=== PATIENT | female | born 1995 | race Caucasian/White ===

== ENCOUNTER 2019-04-12 13:58 | Emergency (ER) | payer OTHER ==
[~2019-04-12] VITALS: Ht 167.6 cm; Wt 72.0 kg
[2019-04-12 14:00] VITALS: BP 135/90; PULSE 76; RESP 16; Ht 167.6 cm; Wt 72.0 kg
[2019-04-12] MEDS ORDERED: KETOROLAC 60 MG INJ IM STA (14:58)
[2019-04-12] MEDS ORDERED: DIPHTH/TET/ACEL PERTUSS (ADULT) 0.5 ML VIAL IM* ONE (15:00)
[2019-04-12] MEDS ORDERED: LIDOCAINE 2%/EPI MPF (SDV) 20 ML VIAL INJ STA (16:08)
[2019-04-12] MEDS ORDERED: IBUP-1542 PO (16:46)
--- NOTE | 2019-04-12 19:13 | ERD ---
ER Documentation Chief Complaint Chief Complaint pt is bib friend with dog bite to lip area HPI Patient is a 23-year-old female with no medical problems who presents with a dog bite. At 2 PM the patient was bit by a friend's dog in the face. The patient is a laceration of the right lip. The patient has pain. She was given tetanus in the ER and Toradol. She does have a primary doctor. ROS All systems reviewed and are negative except as per history of present illness. Medications Home Meds Active Scripts Ibuprofen* (Motrin*) 600 Mg Tab, 600 MG PO Q6H PRN for PAIN AND OR ELEVATED TEMP, #30 TAB Prov:KASHMIR SAENZ MD 04/12/19 Allergies Allergies: Coded Allergies: No Known Allergy (Unverified , 04/12/19) PMhx/Soc Medical and Surgical Hx: pt denies Medical Hx, pt denies Surgical Hx Hx Alcohol Use: No Hx Substance Use: No Hx Tobacco Use: No Smoking Status: Never smoker FmHx Family History: No diabetes Physical Exam Vitals Vital Signs Date Temp Pulse Resp B/P (MAP) Pulse Ox O2 O2 Flow FiO2 Time Delivery Rate 04/12/19 99.0 76 16 135/90 100 14:00 (105) Physical Exam Const: No acute distress Head: Atraumatic Eyes: Normal Conjunctiva ENT: Normal External Ears, Nose and Mouth. Neck: Full range of motion. No meningismus. Resp: Clear to auscultation bilaterally Cardio: Regular rate and rhythm, no murmurs Abd: Soft, non tender, non distended. Normal bowel sounds Skin: Laceration deepened through the vermilion border to the right upper lip, small puncture laceration to the just below the lower lip in the midline Back: No midline or flank tenderness Ext: No cyanosis, or edema Neur: Awake and alert Psych: Normal Mood and Affect Results 24 hrs Laboratory Tests Test 04/12/19 15:14 POC Beta HCG, Qualitative NEGATIVE Current Medications Medications Dose Sig/Marcial Start Time Status Last (Trade) Ordered Route PRN Stop Time Admin Dose Reason Admin Ketorolac 60 mg ONCE STAT 04/12/19 DC 04/12/19 Tromethamine IM 14:58 15:30 (Toradol) 04/12/19 14:59 Diphtheria/ 0.5 ml ONCE ONCE 04/12/19 DC 7/12/19 Tetanus/Acell IM* 15:00 15:30 Pertussis 04/12/19 15:01 (Adacel) Lidocaine/ 20 ml ONCE STAT 04/12/19 DC Epinephrine INJ 16:08 (Xylocaine 04/12/19 16:09 2%/ Epi Mpf(Sdv)) Procedures/MDM Laceration Repair #1 by me: Anesthesia: 1% lidocaine with epinephrine locally Location: Right lip Tendon/Joint/Nerves: No injury Foreign body: None detected after copious irrigation and exploration Technique: Simple Interrupted Sutures Complexity: Deep laceration which crosses the vermilion border Post Closure Length: 3 cm Laceration Repair #2 by me: Anesthesia: 1% lidocaine [with] epinephrine locally Location: Inferior to the lower lip Tendon/Joint/Nerves: No injury Foreign body: None detected after copious irrigation and exploration Technique: Simple Interrupted Sutures Complexity: No subcutaneous sutures/mucosal repair/edge excision Post Closure Length: 0.1 cm Patient's bleeding was easily controlled in the department and there is no indication of anemia. No evidence of compartment syndrome, neurologic injury, vascular injury, open joint, tendon laceration, or foreign body. Patient is appropriate for outpatient follow up. 48 hour wound check. Scar minimization instructions given. Departure Diagnosis: Primary Impression: Dog bite Encounter type: initial encounter Qualified Codes: W54.0XXA - Bitten by dog, initial encounter Condition: Fair Patient Instructions: Dog Bite Referrals: Your doctor Additional Instructions: Wound check 2 days. Suture removal 7-10 days. KASHMIR SAENZ MD Apr 12, 2019 19:13
== END 2019-04-12 17:55 | disposition home or self-care (01) ==
LOC: FTE 13:58
DX: S01.511A Laceration without foreign body of lip, initial encounter (principal); S01.81XA Laceration without foreign body of other part of head, initial encounter; W54.0XXA Bitten by dog, initial encounter; Y92.9 Unspecified place or not applicable; Z23 Encounter for immunization
CPT/HCPCS: 12011; 40650; 81025; 90471; 90715; 96372; J1885; Z7502; Z7610